=== PATIENT | male | born 1990 | race Caucasian/White ===

== ENCOUNTER 2020-07-08 14:51 | Emergency (ER) | payer OTHER, SELFPAY ==
[2020-07-08 15:30] VITALS: BP 136/78; PULSE 98; RESP 16; TEMP 37; O2SAT 99; BMI 37.5
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
== END 2020-07-08 17:16 | disposition home or self-care (01) ==
PROVIDERS: Emergency Provider Emergency Medicine; PCP Internal Medicine
DX: S20.213A Contusion of bilateral front wall of thorax, initial encounter (principal); R07.81 Pleurodynia; V43.52XA Car driver injured in collision with other type car in traffic accident, initial encounter; Y93.9 Activity, unspecified; Y92.410 Unspecified street and highway as the place of occurrence of the external cause; Y99.9 Unspecified external cause status
CPT/HCPCS: 71101; 99283; 99284

== ENCOUNTER 2020-07-17 15:59 | Outpatient (REF) | payer OTHER, SELFPAY ==
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
== END 2020-07-17 16:00 | disposition home or self-care (01) ==
LOC: HO.XRAY 15:59
PROVIDERS: PCP Internal Medicine; Visit Provider Nurse Practitioner Family
DX: M54.2 Cervicalgia (principal); V89.2XXD Person injured in unspecified motor-vehicle accident, traffic, subsequent encounter
CPT/HCPCS: 70360

== ENCOUNTER 2021-01-23 02:57 | Emergency (ER) | payer OTHER, SELFPAY ==
--- NOTE | ~2021-01-23 | CT_ITS ---
EXAMINATION: CT PELVIS WITHOUT CONTRAST CLINICAL INFORMATION: Question rectal abscess COMPARISON: September 14, 2017 TECHNIQUE: Helical scanning was performed with submillimeter collimation through the pelvis. Sagittal and coronal multiplanar 2-D reconstructions were obtained. This CT examination was performed using dose optimization techniques as appropriate, variously including the following: *Automated exposure control *Adjustment of mA and/or kV according to patient size (this includes techniques or standardized protocols for targeted exams where dose is matched to indication/reason for exam; i.e. extremities or head) *Use of iterative reconstruction technique DLP: 676 mGy-cm FINDINGS: PELVIS: No suspicious pelvic mass identified. No free air or free fluid is seen. The appendix appears unremarkable. Urinary bladder unremarkable. There is bilateral inguinal lymphadenopathy seen. There is fat stranding noted about the left inguinal region without fluid formation. Within the retrocecal soft tissues there is a 2.8 x 2.5 x 3.5 cm soft tissue density with adjacent fat streaking. No gas fluid level is appreciated. OSSEOUS STRUCTURES: Unremarkable CT/CT pelvis wo con IMPRESSION: Inguinal lymphadenopathy with findings consistent of the left lymphadenitis. Soft tissue density with adjacent fat streaking in the retrosacral soft tissues without gas fluid level.
[2021-01-23 05:31] VITALS: BP 129/81; PULSE 108; RESP 18; TEMP 36.2; O2SAT 100; BMI 38.8
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
[2021-01-23 07:30] LABS: MANUAL DIFF FLAG NO
--- NOTE | 2021-01-23 07:30 | PC.NURSE ---
Pt alert, oriented, skin pink, warm, dry, VSS. IV established, meds administered as documented. Pt to CT for abscess to coccyx.
[2021-01-23] MEDS: Morphine Sulfate 4 MG/ML CARTRIDGE IVPUSH (07:35)
[2021-01-23 07:37] VITALS: BP 119/51; PULSE 80; RESP 20; TEMP 37.2; O2SAT 98
[2021-01-23 07:49] LABS: Basophils Percent Auto 0.2 % (0-2); Eosinophils Percent Auto 0.2 % (0-4); Hematocrit 40.8 % (42-52); Imm Gran Abs Auto 0.04 X10*3/uL (0.00-0.03); Imm Gran Pct Auto 0.3 % (0.0-0.4); Lymphocytes Percent Auto 15.6 % (20-40); Mean Corpuscular HGB Conc 34.3 g/dl (31.0-36.0); Mean Corpuscular Hemoglobin 29.1 pg (27.0-33.0); Mean Corpuscular Volume 84.8 fL (80-98); Mean Platelet Volume 10.5 fL (9.4-12.4); Monocytes Absolute Auto 1.1 X10*3/uL (0.1-1.2); Neutrophils Absolute Auto 9.4 X10*3/uL (2.0-8.3); Neutrophils Percent Auto 74.7 % (45-73); Platelet Count 314 X10*3/uL (160-400); Red Blood Count 4.81 X10*6/uL (4.60-5.80); Red Cell Distribution Width 11.6 % (11.0-16.0); White Blood Count 12.6 X10*3/uL (4.8-10.8)
[2021-01-23] MEDS: Lidocaine HCl 1 % 20 ML VIAL 5 ML INFILTRATI (07:51)
[2021-01-23 07:53] LABS: Alanine Aminotransferase 40 U/L (0-40); Albumin Level 4.2 g/dL (3.5-5.0); Alkaline Phosphatase 65 U/L (39-117); Anion Gap 12 (12-20); Aspartate Amino Transferase 32 U/L (5-37); Bilirubin Total 0.7 mg/dL (0.0-1.0); Blood Urea Nitrogen 7 mg/dL (9-16); Calcium 9.2 mg/dL (8.4-10.2); Carbon Dioxide 27 mmol/L (22-29); Chloride 104 mmol/L (96-108); Estimated Glomerular Filt Rate > 60; Glucose Random 105 mg/dL (60-115); Potassium 4.1 mmol/L (3.3-5.1); Sodium 139 mmol/L (135-145)
[2021-01-23] MEDS: HYDROmorphone HCl 0.5 MG/0.5 ML SYRINGE IVPUSH (09:00)
--- NOTE | 2021-01-23 09:29 | PC.NURSE ---
Dr. Hernández at bedside attempting to drain abscess
[2021-01-23] MEDS: Lidocaine HCl 2 % 20 ML VIAL INFILTRATI (09:32)
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
== END 2021-01-23 10:39 | disposition home or self-care (01) ==
PROVIDERS: Emergency Provider Emergency Medicine; PCP Internal Medicine
DX: L05.01 Pilonidal cyst with abscess (principal)
CPT/HCPCS: 36415; 72192; 80053; 85025; 96374; 96375; 99284; J1170; J2270

== ENCOUNTER → 2021-01-25 15:54 | Outpatient (BNVA) | payer OTHER, SELFPAY | PROVIDERS: PCP Internal Medicine; Visit Provider Surgery ==

== ENCOUNTER → 2021-02-03 12:56 | Outpatient (BNVA) | payer OTHER, SELFPAY | PROVIDERS: PCP Internal Medicine; Referring Provider Internal Medicine; Visit Provider Surgery ==

== ENCOUNTER 2021-04-05 12:54 | Emergency (ER) | payer OTHER, SELFPAY ==
--- NOTE | ~2021-04-05 | XR_ITS ---
EXAMINATION: XR CHEST CLINICAL INFORMATION: Cough. Shortness of breath. Covid positive. COMPARISON: Previous chest x-ray July 2020 TECHNIQUE: Frontal view of the chest was obtained. FINDINGS: The cardiac and mediastinal contours are normal. The lungs are clear. There is no pleural effusion or pneumonia thorax. Bony structures are unremarkable. XR/XR chest 1V IMPRESSION: Unremarkable examination.
--- NOTE | ~2021-04-05 | CT_ITS ---
EXAMINATION: CT ANGIOGRAM OF THE CHEST WITH AND WITHOUT CONTRAST (CT PULMONARY ANGIOGRAM FOR PE) CLINICAL INFORMATION: Reason for Exam sob, COVID +, r/o pe COMPARISON: Chest x-ray April 05, 2021 TECHNIQUE: Prior to contrast administration, noncontrast localization images were obtained. Subsequently, multidetector volumetric imaging was performed from the thoracic inlet to below the diaphragms following the administration of 71 mL Omnipaque 350 intravenous contrast. No contrast reaction reported Sagittal, coronal, and MIP oblique sagittal reformatted images were obtained on the CT workstation, uploaded to PACS, and reviewed. This CT examination was performed using dose optimization techniques as appropriate, variously including the following: *Automated exposure control *Adjustment of mA and/or kV according to patient size (this includes techniques or standardized protocols for targeted exams where dose is matched to indication/reason for exam; i.e. extremities or head) *Use of iterative reconstruction technique Total exam dose-length product 392 mGy-cm FINDINGS: QUALITY OF STUDY/CONTRAST BOLUS: Satisfactory. PULMONARY ARTERIES: No central or segmental pulmonary emboli. THORACIC AORTA: No aneurysm or dissection. LUNG: There is patchy airspace opacity involving most of the right lung base. Smaller scattered patchy areas of parenchymal airspace disease at the dependent left lower lobe, right middle lobe and bilateral upper lobes. Imaging features can be seen with COVID-19 pneumonia. Although these features are nonspecific and can be occur with a variety of infectious and noninfectious processes. PLEURA: No pleural effusion or pneumothorax. MEDIASTINUM: Normal heart size. No pericardial effusion. . No evidence of septal bowing or right heart strain. There are are mildly enlarged lymph nodes in the subcarina and right hilum. Largest lymph node in the subcarina measuring 1.4 cm. CHEST WALL/AXILLA: No axillary or internal mammary lymphadenopathy. OSSEOUS STRUCTURES: No acute or suspicious osseous abnormality. UPPER ABDOMEN: Unremarkable. No reflux of contrast into the hepatic veins to suggest elevated right heart pressures. CT/CT angio chest PE protocol IMPRESSION: 1. No evidence of pulmonary embolism. 2. Focal bilateral airspace disease, worse at the right lung base. Imaging features can be seen with COVID-19 pneumonia. Although these features are nonspecific and can be occur with a variety of infectious and noninfectious processes. VTE: negative
[2021-04-05 15:09] VITALS: BP 150/105; PULSE 95; RESP 18; TEMP 36.8; O2SAT 98; BMI 34.0
[2021-04-05 15:57] VITALS: BP 128/93; PULSE 104; RESP 18; TEMP 36.7; O2SAT 98
--- NOTE | 2021-04-05 16:35 | ECG_ITS ---
Test Reason : SOB Blood Pressure : / mmHG Vent. Rate : 094 BPM Atrial Rate : 094 BPM P-R Int : 144 ms QRS Dur : 080 ms QT Int : 334 ms P-R-T Axes : 048 034 025 degrees QTc Int : 417 ms Normal sinus rhythm Normal ECG When compared with ECG of 22-MAR-2015 04:31, Vent. rate has increased BY 31 BPM Referred By: Alee Pérez Electronically Signed By:Aldair Coburn
[2021-04-05 16:51] LABS: MANUAL DIFF FLAG NO
[2021-04-05 16:56] LABS: Basophils Percent Auto 0.2 % (0-2); Eosinophils Percent Auto 0.2 % (0-4); Hematocrit 44.8 % (42-52); Hemoglobin 15.4 g/dl (14.0-18.0); Imm Gran Abs Auto 0.02 X10*3/uL (0.00-0.03); Imm Gran Pct Auto 0.3 % (0.0-0.4); Lymphocytes Absolute Auto 1.6 X10*3/uL (1.2-4.9); Lymphocytes Percent Auto 27.6 % (20-40); Mean Corpuscular HGB Conc 34.4 g/dl (31.0-36.0); Mean Corpuscular Hemoglobin 28.7 pg (27.0-33.0); Mean Corpuscular Volume 83.6 fL (80-98); Mean Platelet Volume 10.6 fL (9.4-12.4); Monocytes Absolute Auto 0.4 X10*3/uL (0.1-1.2); Neutrophils Absolute Auto 3.8 X10*3/uL (2.0-8.3); Neutrophils Percent Auto 64.7 % (45-73); Platelet Count 268 X10*3/uL (160-400); Red Blood Count 5.36 X10*6/uL (4.60-5.80); Red Cell Distribution Width 11.9 % (11.0-16.0); White Blood Count 5.9 X10*3/uL (4.8-10.8)
[2021-04-05 17:01] LABS: INTERNATIONAL NORM RATIO 1.2 (0.9-1.1); Prothrombin Time 13.4 SEC (9.9-13.0)
[2021-04-05 17:04] LABS: D Dimer 263 NG/ML
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
[2021-04-05 17:22] LABS: C Reactive Protein 4.63 mg/dL (< or = 0.50)
[2021-04-05 17:31] LABS: Troponin-I High Sensitivity < 3.5 ng/L (<3.5-35.0)
[2021-04-05 17:34] LABS: Alanine Aminotransferase 20 U/L (0-40); Albumin Level 4.5 g/dL (3.5-5.0); Alkaline Phosphatase 54 U/L (39-117); Anion Gap 14 (12-20); Aspartate Amino Transferase 17 U/L (5-37); Bilirubin Direct 0.3 mg/dL (0.0-0.5); Bilirubin Total 0.8 mg/dL (0.0-1.0); Blood Urea Nitrogen 9 mg/dL (9-16); Calcium 9.5 mg/dL (8.4-10.2); Carbon Dioxide 26 mmol/L (22-29); Chloride 103 mmol/L (96-108); Creatinine Clr Calc Pharmacy 136.3; Estimated Glomerular Filt Rate > 60; Glucose Random 94 mg/dL (60-115); Potassium 4.3 mmol/L (3.3-5.1); Sodium 139 mmol/L (135-145); Total Protein 7.5 g/dL (6.5-8.0)
[2021-04-05 17:43] LABS: Lactate Dehydrogenase 217 U/L (118-273)
[2021-04-05 17:47] LABS: Ferritin 218 ng/mL (20-250); Procalcitonin 0.03 ng/mL
[2021-04-05] MEDS: iohexoL 350 MG/ML 100 ML INFUS..BTL IV (17:55)
[2021-04-05 18:18] VITALS: BP 123/73; PULSE 91; RESP 16; TEMP 36.8; O2SAT 98
== END 2021-04-05 19:01 | disposition home or self-care (01) ==
PROVIDERS: Nurse Practitioner Family; Emergency Provider Emergency Medicine; PCP Internal Medicine
DX: U07.1 COVID-19 (principal); J12.82 Pneumonia due to coronavirus disease 2019
CPT/HCPCS: 36415; 71045; 71275; 80048; 80076; 82728; 83615; 83735; 84145; 84484; 85025; 85379; 85610; 86140; 93005; 99284; Q9967

== ENCOUNTER → 2024-12-17 14:34 | Outpatient (BNVA) | payer OTHER, SELFPAY | PROVIDERS: PCP Internal Medicine; Visit Provider Registered Nurse | DX: M54.50 Low back pain, unspecified (principal) | CPT/HCPCS: 72110; 99202 ==

== ENCOUNTER → 2025-01-06 13:54 | Outpatient (BNVA) | payer OTHER, SELFPAY | PROVIDERS: Visit Provider Physician Assistant Medical | DX: M54.50 Low back pain, unspecified (principal) | CPT/HCPCS: 99213 ==

== ENCOUNTER → 2025-01-21 09:24 | Outpatient (BNVA) | payer OTHER, SELFPAY | PROVIDERS: Visit Provider Physician Assistant Medical | DX: M54.50 Low back pain, unspecified (principal) | CPT/HCPCS: 99213 ==

== ENCOUNTER 2025-01-31 13:58 | Outpatient (AMB) | payer OTHER, SELFPAY ==
--- OUTSIDE RECORDS SUMMARY | 2025-01-31 14:03 | XMS_ITS | Data Portability ---
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 Plan of Treatment Reminders Order Date Submit Date Provider Last Modified By Organization Details Last Modified Time Details Appointments None recorded. Lab rapid SARS CoV 2 Ag, QL IA, respiratory specimen 2022 023 [email or web address] [facility], [address] [place] [address], [id number], 3 18:20:47 Referral None recorded. Procedures None recorded. Surgeries None recorded. Imaging None recorded. Medication Orders albuterol sulfate HFA 90 mcg/actuati on aerosol inhaler 2022 023 [facility]armacy #[id number], [address] [place], [address], 3 18:20:49 benzonatate 100 mg capsule 2022 023 [facility]armacy #[id number], [address] [place], [address], 3 18:20:50 azithromyci n 250 mg tablet 2022 023 [facility]armacy #[id number], [address] [place], [address], 3 18:20:49 Patient TargetsNo targets recorded. Patient InstructionsNo instructions recorded. Reason for Referral None Reported. Results Created Date Observation Date Name Description Value Unit Range Abnormal Flag Note LastModifiedBy Organization Detail LastModifiedTime 10/14/19 23 10/14/2022 rapid SARS CoV 2 Ag, QL IA, respi rator y speci men Unknown Analyte negati ve Not Available [facility] [address] [place], [address], 10/14/2022 17:39:52 10/14/1910/14/2022 rapid SARS CoV 2 Ag, QL IA, respi rator y speci men Unknown Analyte Normal =Negat alin Not Available [email or web address] [address] [place], [address], 10/14/2022 17:39:52 Result Notes None recorded. Problems No Known Problems Medical Equipment None Reported. Allergies Allergen ID Allergen Name Allergen Category Reaction Reaction Severity Criticality Documentation Date Start Date Code Code System Note Provider Name and Address Organization Details Recorded Time 17700309 Non-stero idal anti-infl ammatory agent (product) medicatio n swelling Not available Not available 10/14/2022 02462 005 SNOMED NICOLE Tanner - [facility] 3 17:38:45 Medications Name Sig Start Date Stop Date Status Note LastModified by Organization Details LastModified Time azithromycin 250 mg tablet TAKE 2 TABLETS BY MOUTH TODAY, THEN TAKE 1 TABLET DAILY FOR 4 DAYS active Not Available Not Available No t Available benzonatate 100 mg capsule Take 1 capsule 3 times a day by oral route for 10 days. 2022 active Not Available Not Available Not Avai lable albuterol sulfate HFA 90 mcg/actuation aerosol inhaler TAKE 2 PUFFS BY MOUTH EVERY 4 TO 6 HOURS NEEDED COUGH/WHE VERN/SHORT NESS OF BREATH active Not Available Not Available No t Available Vitals Date Recorded Body height Body mass index (BMI) Body weight Body temperature Oxygen saturation Oxygen saturation in Arterial blood by Pulse oximetry Heart rate Respiratory rate Systolic blood pressure Diastolic blood pressure Provider Name and Address Organization Details Last Updated DateTime 3 167.64 cm 38.9 kg/m2 484707. 76 g 97 [degF] 96 % 96 % 96 /min 18 /min 132 mm[Hg] 86 mm[Hg] ISIDRA DAVIS PA - [facility] 17:41:49 Social History Question Answer Notes LastModified by Organizat ion Details LastModified Time Tobacco Smoking Status Never Smoker ISIDRA ham, PA - [facility] 10/14/2022 17:39:40 Have You Recently Traveled Abroad? No [email or web address] Information not available 10/14/2022 Sex: Unknown Functional Status Question Answer Note LastModified by Organizat ion Details LastModified Time Do you use any illicit or recreational drugs? No [email or web address] Information not available 10/14/2022 Do you or have you ever used any other forms of tobacco or nicotine? No [email or web address] Information not available 10/14/2022 What is your level of alcohol consumption? None [email or web address] Information not available 10/14/2022 Mental Status None recorded. Family History Relationship Description Onset Age of this Age Resolved Age Notes LastModified by Organization Details LastModified Time Father No current problems or disability Not available 10/14 17:39:23 Mother No current problems or disability [email or web address] Not available 10/14 17:39:23 Medical History No medical history recorded. Past Encounters Encounter ID Performer Location Encounter Start Date Encounter Closed Date Diagnosis/Indication Diagnosis SNOMED-CT Code Diagnosis ICD10 Code Diagnosis Note [id number] [facility] [facility] [address] [place] [address] 01/18/2018 16:55:30 01/18/2018 17:30:55 [id number] [address] [address] [place] [address] 03/21/2022 09:01:43 03/21/2022 11:17:27 [id number] Juan A Gregory DO [address] [address] [place] [address] 10/14/2022 17:23:57 10/14/2022 18:25:01 Cough 84832780 R05.9 Given Hx and Sx will Rx Abx and albuterol Hugh read prn coughTrial of mucinex prn congestion Humidified airrest, fluidstyle nol/ibu prn Patient advised to follow up as needed for worsening symptoms or no improvemen t. Discussed concerning red flags with patient and reasons to follow up in the Emergency Department urgently. Health Concerns Section Related Observation LastModified by Organization Detai ls LastModified Time None Recorded Concern Status LastModified by Organization Details LastModified Time None Recorded Advance Directives Directive None Recorded Payers Insurance Date Sequence Insurance Name Policy Number Policy Galarza Covered Member ID Galarza Member ID Guarantor Name 10/14/[address] [place] [address] [id number] Sagar Cruz [id number] Sagar Cruz Notes Date Note Type Note Provider Name and Address Organization Details Recorded Time 10/14/2022 text/html 32 yo malec/o cough x 5 ddry coughnon smokerno asthma + subjective fever+ chillsNo CP+ congestionNo ear painNo sore throatNo Abdominal painNo nauseaNo vomitingNp diarrhea+ myalgiaNo fatigueNo rashNo HANo dizzinessNo recent travelNo known sick contacts Juan A Gregory, DO [address] [place], [address], [place] - [facility] 10/14/2022 18:23:11
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
[2025-01-31 14:19] VITALS: BP 142/89; PULSE 86; O2SAT 98; BMI 40.5
== END 2025-01-31 14:51 | disposition home or self-care (01) ==
LOC: HO.PMC 13:59
PROVIDERS: Visit Provider Registered Nurse Emergency
DX: M54.9 Dorsalgia, unspecified (principal)
CPT/HCPCS: 99204; G2211

== ENCOUNTER → 2025-01-31 13:58 | Outpatient (BNVA) | payer OTHER, SELFPAY | PROVIDERS: Visit Provider Registered Nurse Emergency | DX: M54.50 Low back pain, unspecified (principal); Z04.2 Encounter for examination and observation following work accident | CPT/HCPCS: 99202 ==

== ENCOUNTER → 2025-02-11 07:20 | Outpatient (BNV) | payer OTHER, SELFPAY | PROVIDERS: Visit Provider Radiology Diagnostic Radiology | DX: S39.92XA Unspecified injury of lower back, initial encounter (principal); M54.50 Low back pain, unspecified | CPT/HCPCS: 72148 ==

== ENCOUNTER 2025-02-11 07:21 | Outpatient (REF) | payer OTHER, SELFPAY ==
--- NOTE | ~2025-02-11 | MR_ITS ---
EXAMINATION: MR LUMBAR SPINE WITHOUT IV CONTRAST History: PERSISTENT LBP RT SIDE AFTER LIFTING INJURY, PAIN Technique: Sagittal T1, T2 and STIR, and axial T1 and T2 weighted images of the lumbar spine were obtained per departmental protocol. Comparison: Correlation is made with plain films of the lumbar spine dated 12/17/2024. Findings: The vertebral bodies maintain normal height, alignment, and marrow signal intensity. The intervertebral discs maintain normal height and hydration. At T12-L1,there is no evidence of disc herniation, central spinal stenosis, or neural foraminal narrowing. At L1-2, there is no evidence of disc herniation, central spinal stenosis, or neural foraminal narrowing. At L2-3, there is no evidence of disc herniation, central spinal stenosis, or neural foraminal narrowing. At L3-4, there is no evidence of disc herniation, central spinal stenosis, or neural foraminal narrowing. At L4-5, there is a small right foraminal/lateral disc protrusion with annular tear. This causes neural foraminal stenosis. The left neural foramen is patent. There is no central spinal stenosis. At L5-S1, there is no evidence of disc herniation, central spinal stenosis, or neural foraminal narrowing. The conus terminates at the T12-L1 level and demonstrates normal signal intensity. The visualized paraspinal soft tissues are unremarkable. MR/MR lumbar spine wo con Impression: Small right foraminal/lateral disc protrusion with annular tear at L4-5 causing neural foraminal narrowing. Otherwise unremarkable MRI of the lumbar spine without contrast. Electronically signed by: Cheko Garcia MD 02/11/2025 08:34 AM EDT
--- OUTSIDE RECORDS SUMMARY | 2025-02-11 07:23 | XMS_ITS | Data Portability ---
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 Plan of Treatment Reminders Order Date Submit Date Provider Last Modified By Organization Details Last Modified Time Details Appointments None recorded. Lab rapid SARS CoV 2 Ag, QL IA, respiratory specimen 2022 023 [email or web address] [facility], [address] [place] [address], [id number], 3 18:20:47 Referral None recorded. Procedures None recorded. Surgeries None recorded. Imaging None recorded. Medication Orders albuterol sulfate HFA 90 mcg/actuati on aerosol inhaler 2022 023 [facility]/Pharmacy #2071, [address] [place], [address], 3 18:20:49 benzonatate 100 mg capsule 2022 023 [facility]armacy #2071, [address] [place], [address], 3 18:20:50 azithromyci n 250 mg tablet 2022 023 [facility]armacy #2071, [address] [place], [address], 3 18:20:49 Patient TargetsNo targets recorded. Patient InstructionsNo instructions recorded. Reason for Referral None Reported. Results Created Date Observation Date Name Description Value Unit Range Abnormal Flag Note LastModifiedBy Organization Detail LastModifiedTime 10/14/19 23 10/14/2022 rapid SARS CoV 2 Ag, QL IA, respi rator y speci men Unknown Analyte negati ve Not Available [facility] [address] [place], [address], 10/14/2022 17:39:52 10/14/1910/14/2022 rapid SARS CoV 2 Ag, QL IA, respi rator y speci men Unknown Analyte Normal =Negat alin Not Available [address] [address] [place], [address], 10/14/2022 17:39:52 Result Notes None recorded. Problems No Known Problems Medical Equipment None Reported. Allergies Allergen ID Allergen Name Allergen Category Reaction Reaction Severity Criticality Documentation Date Start Date Code Code System Note Provider Name and Address Organization Details Recorded Time 17700309 Non-stero idal anti-infl ammatory agent (product) medicatio n swelling Not available Not available 10/14/2022 57151 005 SNOMED NICOLE Tanner - [facility] [...] Updated DateTime 3 167.64 cm 38.9 kg/m2 998466. 76 g 97 [degF] 96 % 96 % 96 /min 18 /min 132 mm[Hg] 86 mm[Hg] ISIDRA DAVIS PA - [facility] 17:41:49 Social History Question Answer Notes LastModified by Organizat ion Details LastModified Time Tobacco Smoking Status Never Smoker ISIDRA ham, PA - [facility] 10/14/2022 17:39:40 Have You Recently Traveled Abroad? No [email or web address] Information not available 10/14/2022 Sex: Unknown Functional Status Question Answer Note LastModified by Organizat ion Details LastModified Time Do you use any illicit or recreational drugs? No [email or web address] Information not available 10/14/2022 Do you or have you ever used any other forms of tobacco or nicotine? No [email or web address] Information not available 10/14/2022 What is your level of alcohol consumption? None [email or web address] Information not available 10/14/2022 Mental Status None recorded. Family History Relationship Description Onset Age of this Age Resolved Age Notes LastModified by Organization Details LastModified Time Father No current problems or disability [email or web address] Not available 10/14 17:39:23 Mother No current problems or disability [email or web address] Not available 10/14 17:39:23 Medical History No medical history recorded. Past Encounters Encounter ID Performer Location Encounter Start Date Encounter Closed Date Diagnosis/Indication Diagnosis SNOMED-CT Code Diagnosis ICD10 Code Diagnosis Note [id number] [facility] [address] [place] [address] 01/18/2018 16:55:30 01/18/2018 17:30:55 [id number] [address] [address] [address] [place] [address] 03/21/2022 09:01:43 03/21/2022 11:17:27 [id number] Juan A Gregory DO [address] [address] [address] [place] [address] 10/14/2022 17:23:57 10/14/2022 18:25:01 Cough 41900258 R05.9 Given Hx and Sx will Rx [...] ID Galarza Member ID Guarantor Name 10/14/[address] [place] [address] [id number] Sagar Cruz [id number] Sagar Cruz Notes Date Note Type Note Provider Name and Address Organization Details Recorded Time 10/14/2022 text/html 32 yo malec/o cough x 5 ddry coughnon smokerno asthma + subjective fever+ chillsNo CP+ congestionNo ear painNo sore throatNo Abdominal painNo nauseaNo vomitingNp diarrhea+ myalgiaNo fatigueNo rashNo HANo dizzinessNo recent travelNo known sick contacts Juan A Gregory, DO [address] [place], [address], [place] - [facility] 10/14/2022 18:23:11
== END 2025-02-11 07:22 | disposition home or self-care (01) ==
LOC: HO.MRI 07:21
PROVIDERS: Visit Provider Internal Medicine
DX: S39.92XD Unspecified injury of lower back, subsequent encounter (principal)
CPT/HCPCS: 72148

== ENCOUNTER → 2025-02-11 15:07 | Outpatient (BNVA) | payer OTHER, SELFPAY | PROVIDERS: Visit Provider Physician Assistant Medical | DX: M51.369 Other intervertebral disc degeneration, lumbar region without mention of lumbar back pain or lower extremity pain (principal) | CPT/HCPCS: 99213 ==

== ENCOUNTER 2025-03-03 14:00 | Outpatient (RCR) | payer OTHER, SELFPAY ==
--- NOTE | 2025-01-01 14:53 | MHC.PT.EP ---
[facility] [place] [facility] [place] [facility] [place] [facility] [address] Ariel Jo [address] [phone] F: [phone] F: [phone] F: [phone] F: [phone] Physical Therapy Plan of Care Date of Evaluation: 01/01/25 Date of Surgery: Diagnosis: lumbosacral strain (RS) Assessment: Sagar is a pleasant, motivated 34 y.o. male who is referred to PT by Alize Baker PA-C, with Dx of lumbosacral strain sustained after work injury. No disc involvement is indicated during examination. Patient impairments include poor postures, pain, limited lumbar AROM, tightness in lumbar spine musculature, mild weakness R proximal hip due to pain. Patient current functional limitations are bending over to tie shoes, putting on pants to lift his legs, twist, prolonged sitting and standing. Patient will benefit from skilled PT to address aforementioned impairments and functional limitations to meet established goals. Frequency and Duration: The patient will be seen 2-3x/week for 6 weeks Short Term Goals: 2 weeks Patient demonstrates consistency and independence with HEP to self manage symptoms. Longterm Goals: 4 weeks Patient presents with increased lumbar spine flexion AROM 90 degrees to restore mobility for lower body dressing. Patient presents with increased R hip flexion 5/5 to be able to squat and lift 30# for work tasks. Treatment Plan: Modalities to reduce pain, spasms and effusion. Manual therapy to restore motion and function. Therapeutic exercise to improve strength and flexibility. Neuromuscular re-education for posture and balance. Therapeutic activities to return to functional activities of daily living. Electronically signed by: Keena Gomez, PT, DPT Please sign and return to therapist. Thank you for your referral.
--- NOTE | 2025-03-28 15:57 | MHC.PT.DC ---
[facility] [place] Office [place] Office [place] Office [address] Ariel Jo [address] [phone] F: [phone] F: [phone] F: [phone] F: [phone] Physical Therapy Discharge Report Diagnosis: lumbosacral strain (RS) Date of Surgery: Date of Evaluation: 01/01/25 Date of Discharge: 03/28/25 Treatments to Date: 11 Cancellations to Date: 2 No Shows to Date: 7 Discharge Status: Recommend MD Follow-up Visit Non-compliance Discharge Summary: Sagar Cruz did well with PT interventions including therapeutic exercise, therapeutic activities, manual therapy, modalities and the most relief of LE radicular sxs with use of mechanical lumbar traction. He is discharged for non compliance as he no showed to multiple sessions. Referring provider made aware as pt was recommended to continue PT, likely will go to a different clinic for work hardening/conditioning. Electronically signed by: Keena Gomez, PT, DPT Please sign and return to therapist. Thank you for your referral.
== END 2025-03-28 15:57 | disposition home or self-care (01) ==
LOC: HO.PT 14:00
PROVIDERS: Visit Provider Physician Assistant Medical
DX: S39.012A Strain of muscle, fascia and tendon of lower back, initial encounter (principal)
CPT/HCPCS: 97012; 97014; 97110; 97140; 97161; 97530; 97535

== ENCOUNTER → 2025-03-10 14:42 | Outpatient (BNVA) | payer OTHER, SELFPAY | PROVIDERS: Visit Provider Physician Assistant Medical | DX: M99.63 Osseous and subluxation stenosis of intervertebral foramina of lumbar region (principal); S39.012D Strain of muscle, fascia and tendon of lower back, subsequent encounter; X58.XXXD Exposure to other specified factors, subsequent encounter | CPT/HCPCS: 99213 ==

== ENCOUNTER → 2025-05-06 14:45 | Outpatient (BNVA) | payer OTHER, SELFPAY | PROVIDERS: Visit Provider Physician Assistant Medical | DX: M51.17 Intervertebral disc disorders with radiculopathy, lumbosacral region (principal) | CPT/HCPCS: 99213 ==